=== PATIENT | male | born 1980 | race Caucasian/White ===

== ENCOUNTER 2024-01-20 15:53 | Emergency (ER) | payer BC | END 2024-01-20 16:50 | disposition home or self-care (01) | LOC: ERS 15:53 | DX: M25.551 Pain in right hip (principal); I10 Essential (primary) hypertension; E10.9 Type 1 diabetes mellitus without complications; W18.01XA Striking against sports equipment with subsequent fall, initial encounter | CPT/HCPCS: 99283 ==